=== PATIENT | male | born 1990 | race African-American/Black ===

== ENCOUNTER 2016-07-02 05:53 | Emergency (ER) | payer OTHER, MEDICAID ==
[~2016-07-02 05:53] MED LIST: ALLEGRA180 MG PO; AUGMENTIN PO; IBUPROFEN PO
== END 2016-07-02 06:11 | disposition home or self-care (01) ==
LOC: CFTX 05:53
DX: J02.9 Acute pharyngitis, unspecified (principal); F31.9 Bipolar disorder, unspecified
CPT/HCPCS: 96372; 99283; J0561; J1885